=== PATIENT | male | born 1945 | race Two or more races ===

== ENCOUNTER 2018-10-13 13:09 | Emergency (ER) | payer OTHER, MEDICARE ==
[2018-10-13] MEDS ORDERED: LIPITOR20 MG PO (13:40)
[2018-10-13] MEDS ORDERED: BLOOD PRESSURE PO (13:41)
[2018-10-13] MEDS ORDERED: ASPIRIN81 MG PO (13:41)
[2018-10-13 13:48] LABS: HEMATOCRIT 44.3 % (39.0-50.0); IMMATURE GRANULOCYTES 0.5 % (0.0-5.0); MEAN CELL VOLUME 91.2 fL CALC (80.0-100.0); MEAN CORPUSCULAR HGB 30.9 pG CALC (26.0-32.0); MEAN CORPUSCULAR HGB CONC 33.9 g/L CALC (32.0-36.0); NEUT# 3.94 thou/uL (1.82-7.42); RED BLOOD COUNT 4.86 mill/uL (4.70-6.10); RED CELL DISTRI WIDTH 13.3 % (11.5-15.5)
[2018-10-13 13:54] LABS: ALBUMIN 4.2 g/dL (3.2-5.0); ALKALINE PHOSPHATASE 93 u/l (38-126); ANION GAP 14 (6-22 (CALC)); BILIRUBIN, TOTAL 0.7 mg/dL (0.0-1.4); BUN 19 mg/dL (8-23); BUN/CREATININE RATIO 16 (12-20 (CALC)); CARBON DIOXIDE 23 mmol/l (22-30); CHLORIDE 106 mmol/l (95-108); CREATININE 1.2 mg/dL (0.7-1.3); GFR 59 ML/MIN (>=60 (CALC)); GFR FOR AFR.AMER. > 60 ML/MIN (>=60 (CALC)); LIPASE 157 u/l (23-300); SGOT/AST 33 u/l (19-48); SODIUM 139 mmol/l (137-146); TOTAL PROTEIN 7.4 g/dL (6.3-8.2)
[2018-10-13] MEDS ORDERED: IBUPROFEN600 MG PO (16:02)
[2018-10-13] MEDS ORDERED: FLEXERIL5 M1 PO (16:02)
[2018-10-13] MEDS ORDERED: TRAMADOL HYDROC50 MG PO (16:02)
[2018-10-13 16:21] VITALS: BP 118/76
== END 2018-10-13 16:31 | disposition home or self-care (01) | DRG 552 ==
LOC: ED 13:09
DX: M54.2 Cervicalgia (principal); M54.9 Dorsalgia, unspecified; I10 Essential (primary) hypertension; E78.5 Hyperlipidemia, unspecified; V54.5XXA Driver of pick-up truck or van injured in collision with heavy transport vehicle or bus in traffic accident, initial encounter